=== PATIENT | male | born 1995 | race Hispanic/Latino ===

== ENCOUNTER 2023-05-28 10:05 | Emergency (ER) | payer SELFPAY ==
--- NOTE | ~2023-05-28 | CT_ITS ---
EXAMINATION: CT abdomen pelvis w con INDICATION: Diffuse abdominal pain TECHNIQUE: Computed tomographic images of the abdomen and pelvis were obtained after the administrati on of 100 cc of Omnipaque 350 intravenous contrast. The dose-length product (DLP) was 945.44 mGy-cm. Automated exposure control and iterative reconstruction technique were employed. COMPARISON: 01/23/2019 FINDINGS: The visualized lung bases are clear. The heart size is normal. The liver, spleen, pancreas, gallbladder, and adrenal glands are normal. There is a 3 mm nonobstructing stone of the left kidney lower pole. The right kidney is unremarkable. No pathologically enlarged abdominal or pelvic lymph no coco are identified. There is no free intraperitoneal gas or evidence of bowel obstruction. The append ix is normal. There is mild lumbar spondylosis. IMPRESSION: 1. No CT correlate for the patient's symptoms. 2. Nonobstructing left nephrolithiasis. Reviewed, dictated and finalized at location B. LMER/FUNERAL DIRECTOR
[2023-05-28 10:32] VITALS: BP 137/85; PULSE 92; RESP 16; TEMP 36.4; O2SAT 100
[2023-05-28 10:36] VITALS: BP 125/77; PULSE 80; RESP 18; O2SAT 100
--- NOTE | 2023-05-28 10:45 | ED.ABDPAIN ---
HPI - Abdominal Pain General Chief Complaint: Abdominal Pain Stated Complaint: abd pain, hx crohns Time Seen by Provider: 05/28/23 10:37 History of Present Illness HPI narrative: 27-year-old male history of Crohn's presents to the emergency room for evaluation of diffuse abdominal pain has been present for 1 week. Abdominal pain is associated with nausea and vomiting. Patient states he was diagnosed with Crohn's 3 years ago and has not been under the treatment of a GI. States he is supposed to be taking medication for his Crohn's but has not been. Denies blood in his stool or emesis. Related Data Allergies Allergy/AdvReac Type Severity Reaction Status Date / Time No Known Allergies Allergy Verified 05/28/23 10:37 Review of Systems Review of Systems: CONSTITUTIONAL: Denies fever, chills, or sweats. EYES: Denies visual changes, redness, or discharge. ENT: Denies rhinorrhea, congestion, sore throat, or otalgia. CARDIOVASCULAR: Denies chest pain, palpitations, or edema. RESPIRATORY: Denies cough or dyspnea. GASTROINTESTINAL: Reports abdominal pain, nausea, vomiting and diarrhea GENITOURINARY: Denies dysuria or hematuria. SKIN: Denies rash or itching. MUSCULOSKELETAL: Denies back pain, joint pain, or myalgia. NEUROLOGIC: Denies headache, numbness, dizziness, or weakness. PSYCHIATRIC: Denies anxiety or depression. Exam Narrative: GENERAL: Well-appearing, well-nourished, no physical limitations, and in no acute distress. HEAD: Normocephalic, atraumatic. EYES: Conjunctivae normal, PERRLA and EOMI. CHEST: Clear to auscultation. No respiratory distress. No wheezes rales or rhonchi. HEART: Regular rate and rhythm. No murmur heard. Normal peripheral pulses. ABDOMEN: Soft, diffuse tenderness, nondistended, normal active bowel sounds. BACK: No CVA tenderness EXTREMITIES: Normal range of motion. No edema. No clubbing or cyanosis SKIN: Warm, dry, no rash. No noted wounds NEURO: No focal deficits. Alert and oriented x3. MAEW. CN's II-XI intact bilaterally, normal gait PSYCH: Cooperative. Normal mood and affect. Course Vital Signs Vital signs: Vital Signs Temperature 36.4 C 05/28/23 10:32 Pulse Rate 92 05/28/23 10:32 Respiratory Rate 16 05/28/23 10:32 Blood Pressure 137/85 05/28/23 10:32 Pulse Oximetry 100 05/28/23 10:32 Oxygen Delivery Room Air 05/28/23 10:32 Temperature 36.4 C 05/28/23 10:32 Pulse Rate 80 05/28/23 10:36 Respiratory Rate 18 05/28/23 10:36 Blood Pressure 125/77 05/28/23 10:36 Pulse Oximetry 100 05/28/23 10:36 Oxygen Delivery Room Air 05/28/23 10:36 MDM - Abdominal Pain MDM Narrative Medical decision making narrative: 27-year-old male with a history of Crohn's presented to the emergency room for evaluation of generalized abdominal pain that began about a week ago associated with some nausea, vomiting and diarrhea. CT scan shows no evidence of acute intra-abdominal abnormality. Lab work was unremarkable. Patient was given a liter of fluids and 4 mg Zofran, stating a significant improvement in his symptoms. Will have patient follow-up with GI Lab Data 05/28/23 10:38 05/28/23 10:38 Labs: Lab Results 05/28/23 Range/Units 10:38 WBC 9.4 (4.5-10.0) K/mm3 RBC 5.42 (4.6-6.20) M/mm3 Hgb 15.7 (14.0-18.0) g/dL Hct 49.2 (42.0-52.0) % MCV 90.8 (80-100) fl MCH 29.0 (26-34) pg MCHC 31.9 L (32-36) g/dl RDW 12.2 (11.5-14.5) % Plt Count 276 (150-375) k/mm3 MPV 9.1 (7.4-10.4) fl Immature Gran % (Auto) 0.4 (0-0.5) % Neut % (Auto) 58.8 (45.5-73.1) % Lymph % (Auto) 28.0 (18.3-44.2) % Chambers % (Auto) 6.8 (2.6-8.5) % Eos % (Auto) 5.4 H (0-4.4) % Baso % (Auto) 0.6 (0.2-1.2) % Lymph # (Auto) 2.62 (0.9-3.2) K/mm3 Chambers # (Auto) 0.6 (0.1-0.6) K/mm3 Eos # (Auto) 0.5 H (0-0.3) K/mm3 Baso # (Auto) 0.1 (0.0-0.1) K/mm3 Abs Immat Gran (auto) 0.04 H (0.00-0.031) K/mm3 Absolute Neuts (
[2023-05-28] MEDS: SODIUM CHLORIDE 0.9% IV 1,000 ML 999 ML IV CONT (10:51)
[2023-05-28] MEDS: ONDANSETRON INJ 4 MG/2 ML VIAL IV PUSH (10:51)
[2023-05-28 10:59] LABS: Basophils Absolute Auto 0.1 K/mm3 (0.0-0.1); Basophils Percent Auto 0.6 % (0.2-1.2); Eosinophils Absolute Auto 0.5 K/mm3 (0-0.3); Eosinophils Percent Auto 5.4 % (0-4.4); Hematocrit 49.2 % (42.0-52.0); Hemoglobin 15.7 g/dL (14.0-18.0); Immature Granulocyte Absolute 0.04 K/mm3 (0.00-0.031); Immature Granulocyte Percent A 0.4 % (0-0.5); Lymphocytes Absolute Auto 2.62 K/mm3 (0.9-3.2); Mean Corpuscular HGB Conc 31.9 g/dl (32-36); Mean Corpuscular Volume 90.8 fl (80-100); Mean Platelet Volume 9.1 fl (7.4-10.4); Monocytes Absolute Auto 0.6 K/mm3 (0.1-0.6); Monocytes Percent Auto 6.8 % (2.6-8.5); Neutrophils Absolute Auto 5.5 K/mm3 (1.3-6.7); Neutrophils Percent Auto 58.8 % (45.5-73.1); Platelet Count Result 276 k/mm3 (150-375); Red Blood Count 5.42 M/mm3 (4.6-6.20); Red Cell Distribution Width 12.2 % (11.5-14.5); White Blood Count 9.4 K/mm3 (4.5-10.0)
[2023-05-28 11:14] LABS: Alanine Aminotransferase 19 U/L (6-50); Albumin Level 4.5 g/dL (3.5-5.1); Alkaline Phosphatase 54 U/L (38-126); Anion Gap 4 mmol/L (8-16); Aspartate Amino Transferase 22 U/L (17-59); Bilirubin,Total 0.8 mg/dL (0.2-1.3); Blood Urea Nitrogen 13 mg/dL (9-20); CRP 0.6 mg/dL (<1.0); Calcium 9.1 mg/dL (8.4-10.2); Carbon Dioxide 30 mmol/L (22-30); Chloride 105 mmol/L (98-107); Estimated CRCL calculation 113 ml/min; Estimated Glomerular Filt Rate > 60; Glucose 91 mg/dL (65-110); Lipase 50 U/L (23-300); Potassium 4.6 mmol/L (3.4-5.0); Sodium 139 mmol/L (137-145)
[2023-05-28 11:20] LABS: Appearance Urine Clear (Clear); Bacteria Urine None Seen /hpf; Bilirubin Urine Negative (Negative); Blood Urine 1+ (Negative); Color Urine Yellow (Yellow); Glucose Urine UA Negative (Negative); Ketones Urine Negative (Negative); Leukocyte Esterase Ur Negative LEU/UL (Negative); Nitrate Urine Negative (Negative); Non Pathogenic Casts 0-2; Protein Urine Negative (Negative); Specific Grav Ur 1.024 (1.001-1.035); Squamous Epithelial Cell Urine None seen /hpf (Few); WBC Urine 0-5 /hpf
[2023-05-28 11:59] LABS: Add Urine Microscopic? YES
[2023-05-28 12:47] VITALS: BP 112/59; PULSE 60; RESP 18; O2SAT 100
== END 2023-05-28 12:48 | disposition home or self-care (01) ==
PROVIDERS: Emergency Medicine; Emergency Provider Nurse Practitioner Family
DX: R10.84 Generalized abdominal pain (principal); K50.90 Crohn's disease, unspecified, without complications; N20.0 Calculus of kidney
CPT/HCPCS: 36415; 74177; 80053; 81001; 83690; 85025; 86140; 96361; 96374; 99284; J2405; J7030; Q9967